=== PATIENT | male | born 1960 | race Caucasian/White ===

== ENCOUNTER 2019-06-18 22:02 | Emergency (ER) | payer SELFPAY ==
[~2019-06-18] VITALS: Ht 162.6 cm; Wt 56.7 kg
--- NOTE | 2019-06-18 22:50 | Diagnostic Imaging Report ---
EXAMINATION: Head CT HISTORY: Status post fall the day before, head trauma, right forehead laceration, persistent headache COMPARISON: None. TECHNIQUE: Multidetector axial images were obtained without contrast from the foramen magnum to the vertex . The images were reconstructed using brain and bone algorithms. Thin section brain images were reformatted into coronal and sagittal planes. Image quality: Motion/streaking artifact limits the evaluation of the skull base and posterior cranial fossa. Dose modulation, iterative reconstruction, and/or weight based adjustment of the mA/kV was utilized to reduce the radiation dose to as low as reasonably achievable. FINDINGS: Parenchyma: 1. No abnormal densities. 2. No mass or hemorrhage. No CT evidence of acute territorial vascular insult. Extra-axial spaces:No abnormal density. No extra-axial fluid collections Brain volume: Normal for age. 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 Arteries: No density suggestive of thrombus. Dural sinuses: No abnormal density. Extra-axial spaces: No abnormal density. Foramen magnum: No mass, Chiari malformation, or basilar invagination. Sella: No obvious mass. Paranasal/mastoid sinuses: Imaged portions unremarkable. Skull/Scalp: No lytic or blastic lesions. No fractures. Incidental findings: Right ocular scleral band, the right globe is elongated in the AP dimension and the right left is not visualized, likely from prior cataract surgery. IMPRESSION: 1. No acute posttraumatic intracranial abnormalities, particularly no hemorrhage. 2. 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 Signed by: Dr. Patricia Payton M.D. on 06/18/2019 10:46 PM
--- NOTE | 2019-06-18 23:03 | Diagnostic Imaging Report ---
RIGHT ELBOW - 3 Images HISTORY: Status post fall, pain COMPARISON: None available. FINDINGS: Sensitivity limited by portable technique. Bones: No acute displaced fracture. No aggressive osseous lesion. Small olecranon enthesophyte. Joints: Mild ulnotrochlear degenerative changes. Soft tissues: The soft tissues appear unremarkable. IMPRESSION: 1. No acute radiographic abnormality. 2. Mild ulnotrochlear osteoarthrosis. 3. Mild chronic distal triceps enthesopathy. Signed by: Dr. Nicholas Arreola D.O., M.M.M. on 06/18/2019 11:00 PM
[2019-06-19 00:25] VITALS: BP 109/72
[2019-06-19] MEDS ORDERED: ACETAMINOPHEN 325 MG TAB PO ONE (00:30)
[2019-06-19] MEDS ORDERED: ACETAMINOPHEN 325 MG TAB ONE ×2 (00:33→00:35)
== END 2019-06-19 00:35 | disposition home or self-care (01) ==
LOC: ER 22:02
DX: S00.83XA Contusion of other part of head, initial encounter (principal); S50.01XA Contusion of right elbow, initial encounter; W18.30XA Fall on same level, unspecified, initial encounter; Y92.488 Other paved roadways as the place of occurrence of the external cause; I10 Essential (primary) hypertension; E03.9 Hypothyroidism, unspecified; B19.20 Unspecified viral hepatitis C without hepatic coma; F41.9 Anxiety disorder, unspecified
CPT/HCPCS: 70450; 99283

== ENCOUNTER → 2020-07-06 | Outpatient (CLI) | payer OTHER ==
[~2020-07-06] MED LIST: AMLODIPINE BESYL5 MG PO; BUPROPION HCL75 MG PO; LEVOTHYROXINE100 MC1 PO; LIBRIUM PO; LISINOPRIL10 MG PO; PROAIR HFA INH8.5 GM INH
--- NOTE | 2020-07-06 10:40 | Diagnostic Imaging Report ---
EXAM: US LIVER DATE: 07/06/2020 10:09 AM INDICATION: Hepatitis C COMPARISON: None FINDINGS: The visualized pancreas appears unremarkable. The liver is normal in size measuring 14.6 cm in length. Hepatic echogenicity is within normal limits. No focal hepatic abnormality is identified. The main portal vein is patent with antegrade flow and diameter of 1.1 cm, within normal limits. The gallbladder appears contracted but otherwise unremarkable. There is no evidence for cholelithiasis, wall thickening, or pericholecystic fluid. There is no intra or extrahepatic biliary ductal dilatation. The common bile duct measures 3 mm. Sonographic Mcdonald's sign is negative. The right kidney is normal in size measuring 10.5 cm in length with normal cortical thickness/echogenicity. There is no evidence for solid renal mass, hydronephrosis, or shadowing calculi within the right kidney. The visualized portions the IVC and aorta are within normal limits. There is no ascites visualized within the right upper quadrant. IMPRESSION: Unremarkable right upper quadrant ultrasound examination. Specifically, no sonographically evident focal hepatic abnormality is identified. Signed by: Dr. Maurisio Bob MD on 07/06/2020 10:37 AM
== END ==
LOC: US 09:49
PROVIDERS: ATTEND Internal Medicine Gastroenterology
DX: B18.2 Chronic viral hepatitis C (principal)
CPT/HCPCS: 76705

== ENCOUNTER → 2020-07-10 | Day surgery (SDC) | payer OTHER ==
[2020-07-05 09:45] LABS: BASOPHILS # (AUTO) 0.1 (0.0-0.1); BASOPHILS % 0.8 % (0.0-1.0); EOSINOPHILS # (AUTO) 0.1 (0.0-0.4); EOSINOPHILS % 1.5 % (0.0-6.0); HEMOGLOBIN 14.6 g/dL (14.0-18.0); LYMPHOCYTES # (AUTO) 1.8 (1.0-3.2); LYMPHOCYTES % 24.8 % (18.0-39.1); MEAN CORPUSCULAR HEMOGLOBIN 34.8 pg (28-32); MEAN CORPUSCULAR VOLUME 102.4 fL (81-99); MONOCYTES # (AUTO) 0.7 (0.2-0.8); MONOCYTES % 9.2 % (4.4-11.3); NEUTROPHILS # (AUTO) 4.6 (2.1-6.9); NEUTROPHILS % 63.1 % (38.7-80.0); PLATELET COUNT 230 x10e3/uL (140-360); RED CELL DISTRIBUTION WIDTH 12.7 % (11.7-14.4)
[2020-07-05 10:06] LABS: ALANINE AMINOTRANSFERASE 50 IU/L (0-55); ALBUMIN 3.4 g/dL (3.5-5.0); ALBUMIN/GLOBULIN RATIO 0.9 (0.8-2.0); ALKALINE PHOSPHATASE 100 IU/L (40-150); ANION GAP 11.1 mmol/L (8-16); BLOOD UREA NITROGEN 5 mg/dL (7-26); BUN/CREATININE RATIO 6 (6-25); CALCIUM 9.3 mg/dL (8.4-10.2); CARBON DIOXIDE 28 mmol/L (22-29); CHLORIDE 103 mmol/L (98-107); CREATININE, SERUM 0.82 mg/dL (0.72-1.25); EST GLOMERULAR FILTRATION RATE > 60 ML/MIN (60-); GLUCOSE 79 mg/dL (74-118); POTASSIUM 3.1 mmol/L (3.5-5.1); SODIUM 139 mmol/L (136-145)
[2020-07-05 10:49] LABS: INR 0.88; PROTHROMBIN TIME 12.4 seconds (11.9-14.5)
[2020-07-05 10:50] LABS: PARTIAL THROMBOPLASTIN TIME 27.2 seconds (23.8-35.5)
[~2020-07-10] MED LIST changes: +FENTANYL CITRATE/PF 100MCG/2 ML INJ ONE; +GLUCAGON FOR INJ 1 MG VIAL ONE; +HYOSCYAMINE 0.125 MG TAB ONE; +LIDOCAINE HCL 2% LOCAL INJ 5 ML SDV VIAL INJ ONE; +MIDAZOLAM HCL 2 MG/2 ML VIAL ONE; +PROPOFOL IV EMULSION 10 MG/ML 20 ML VIAL ONE
[2020-07-10 13:55] VITALS: BP 114/80
--- NOTE | 2020-07-10 14:09 | Operative Report ---
DATE OF PROCEDURE: 07/10/2020 SURGEON: Jim Bah MD PROCEDURE: Colonoscopy with polypectomy. INDICATIONS FOR COLONOSCOPY: Colorectal cancer screening. MEDICATIONS: The patient was done under MAC, please see anesthesiologist's note. PROCEDURE IN DETAIL: With the patient in the left lateral decubitus position, a flexible fiberoptic Olympus colonoscope was inserted into the rectum with ease and advanced all the way to the cecum. It was then withdrawn slowly. Mucosa overlying the cecum, ascending colon, transverse colon, and descending colon appeared to be within normal limits. Two polyps with the largest approximately 1.2 cm in size, sessile were removed per snare electrocautery from the sigmoid colon. Two additional polyps, one approximately 6 mm and the other approximately 8 mm in the rectum were removed per hot snare polypectomy. The scope was then retroflexed into the distal rectum and small internal hemorrhoids were noted, none of which was actively bleeding. The scope was then straightened out, it was subsequently withdrawn, and the patient tolerated the procedure well. IMPRESSION: 1. Sigmoid colon polyps x2 with the largest approximately 1.2 cm in size, removed per snare electrocautery. 2. Rectal polyps x2, hot snared. 3. Internal hemorrhoids, none actively bleeding. PLAN: Follow up histology. Initiate high-fiber, low-fat diet. Initiate high-fiber supplement. The patient might benefit from a followup colonoscopy in 2 to 3 years. Jim Bah MD [facility] [place][id number] cc: Macario Matt MD
== END | disposition home or self-care (01) ==
LOC: OR 08:48
PROVIDERS: ATTEND Internal Medicine Gastroenterology
DX: Z12.11 Encounter for screening for malignant neoplasm of colon (principal); D12.8 Benign neoplasm of rectum; K64.8 Other hemorrhoids; E03.9 Hypothyroidism, unspecified; B19.20 Unspecified viral hepatitis C without hepatic coma; I10 Essential (primary) hypertension; J44.9 Chronic obstructive pulmonary disease, unspecified; F32.9 Major depressive disorder, single episode, unspecified; F41.9 Anxiety disorder, unspecified; F17.290 Nicotine dependence, other tobacco product, uncomplicated; F17.210 Nicotine dependence, cigarettes, uncomplicated; F10.10 Alcohol abuse, uncomplicated; Z01.810 Encounter for preprocedural cardiovascular examination; Z01.812 Encounter for preprocedural laboratory examination; Z11.59 Encounter for screening for other viral diseases; Z99.81 Dependence on supplemental oxygen
CPT/HCPCS: 36415; 45385; 80053; 85025; 85610; 85730; 93005; J1610; J2001; J2250; J2704; J3010; U0002; 45378; 45380

== ENCOUNTER 2021-09-20 09:04 | Emergency (ER) | payer OTHER, MEDICARE ==
[~2021-09-20] VITALS: Ht 162.6 cm; Wt 56.7 kg
[~2021-09-20 09:04] MED LIST changes: -FENTANYL CITRATE/PF 100MCG/2 ML INJ ONE; -GLUCAGON FOR INJ 1 MG VIAL ONE; -HYOSCYAMINE 0.125 MG TAB ONE; -LIDOCAINE HCL 2% LOCAL INJ 5 ML SDV VIAL INJ ONE; -MIDAZOLAM HCL 2 MG/2 ML VIAL ONE; -PROPOFOL IV EMULSION 10 MG/ML 20 ML VIAL ONE
[2021-09-20] MEDS ORDERED: IBUPROFEN 600 MG TAB PO STA (10:01)
[2021-09-20] MEDS ORDERED: ULTRACET TABLE1 EACH PO (11:00)
[2021-09-20] MEDS ORDERED: IBUPROFEN600 MG PO (11:00)
[2021-09-20] MEDS ORDERED: Morphine 4mg Syringe 4 MG/ML INJ IM ONE (12:15)
[2021-09-20] MEDS ORDERED: Morphine 4mg Syringe 4 MG/ML INJ ONE (12:23)
[2021-09-20 12:24] VITALS: BP 152/92
== END 2021-09-20 12:30 | disposition home or self-care (01) ==
LOC: ER 09:23
DX: M25.562 Pain in left knee (principal); S82.002A Unspecified fracture of left patella, initial encounter for closed fracture; W01.0XXA Fall on same level from slipping, tripping and stumbling without subsequent striking against object, initial encounter; Y92.008 Other place in unspecified non-institutional (private) residence as the place of occurrence of the external cause; I10 Essential (primary) hypertension; E03.9 Hypothyroidism, unspecified; B19.20 Unspecified viral hepatitis C without hepatic coma; H40.9 Unspecified glaucoma; F17.210 Nicotine dependence, cigarettes, uncomplicated
CPT/HCPCS: 29530; 73562; 99283; J2270

== ENCOUNTER 2022-03-10 13:36 | Observation (INO) | payer MEDICARE, OTHER ==
[~2022-03-10] VITALS: Ht 162.6 cm; Wt 56.7 kg
[~2022-03-10 13:36] MED LIST changes: +IBUPROFEN600 MG PO; +ULTRACET TABLE1 EACH PO
[2022-03-10 14:00] LABS: BASOPHILS # (AUTO) 0.1 (0.0-0.1); EOSINOPHILS # (AUTO) 0.1 (0.0-0.4); EOSINOPHILS % 1.3 % (0.0-6.0); HEMATOCRIT 49.4 % (38.2-49.6); HEMOGLOBIN 17.5 g/dL (14.0-18.0); LYMPHOCYTES # (AUTO) 1.9 (1.0-3.2); MEAN CORPUSCULAR HEMOGLOBIN 35.7 pg (28-32); MEAN CORPUSCULAR HGB CONC 35.4 g/dL (31-35); MEAN CORPUSCULAR VOLUME 100.8 fL (81-99); MONOCYTES # (AUTO) 0.5 (0.2-0.8); MONOCYTES % 7.9 % (4.4-11.3); NEUTROPHILS # (AUTO) 3.5 (2.1-6.9); NEUTROPHILS % 58.1 % (38.7-80.0); PLATELET COUNT 174 x10e3/uL (140-360); RED CELL DISTRIBUTION WIDTH 12.8 % (11.7-14.4)
[2022-03-10 14:21] LABS: INR 0.95; PROTHROMBIN TIME 13.6 seconds (11.9-14.5)
[2022-03-10 14:22] LABS: PARTIAL THROMBOPLASTIN TIME 26.9 seconds (23.8-35.5)
[2022-03-10 14:32] LABS: ALANINE AMINOTRANSFERASE 60 IU/L (0-55); ALBUMIN 3.7 g/dL (3.5-5.0); ALBUMIN/GLOBULIN RATIO 0.9 (0.8-2.0); ALKALINE PHOSPHATASE 97 IU/L (40-150); BLOOD UREA NITROGEN 12 mg/dL (7-26); BUN/CREATININE RATIO 12 (6-25); CALCIUM 9.6 mg/dL (8.4-10.2); CARBON DIOXIDE 24 mmol/L (22-29); CHLORIDE 98 mmol/L (98-107); CREATINE KINASE 28 IU/L (30-200); CREATININE, SERUM 0.98 mg/dL (0.72-1.25); EST GLOMERULAR FILTRATION RATE 78 ML/MIN (60-); GLUCOSE 103 mg/dL (74-118); SODIUM 132 mmol/L (136-145)
[2022-03-10 14:46] LABS: AMPHETAMINES SCREEN,URINE NEGATIVE (NEGATIVE); BENZODIAZEPINES SCREEN,URINE POSITIVE (NEGATIVE); PHENCYCLIDINE SCREEN,URINE NEGATIVE (NEGATIVE)
[2022-03-10 14:47] LABS: CLARITY,URINE HAZY (CLEAR); COLOR,URINE YELLOW (YELLOW); KETONES,URINE 1+ (NEGATIVE); LEUKOCYTE ESTERASE ,URINE NEGATIVE (NEGATIVE); NITRITE,URINE NEGATIVE (NEGATIVE); PROTEIN,URINE DIPSTICK NEGATIVE (NEGATIVE); URINE UROBILINOGEN 1 mg/dL (0.2 - 1)
[2022-03-10 14:49] LABS: BACTERIA,URINE FEW /HPF; EPITHELIAL CELLS,URINE FEW /LPF; RBC,URINE 0-5 /HPF (0-5); WBC,URINE (MAN) 0-5 /HPF (0-5)
[2022-03-10 14:51] LABS: CREATINE KINASE MB < 0.10 ng/mL (0-5.0)
[2022-03-10] MEDS ORDERED: HYDROCODONE/APAP 5MG-325MG TAB PO ONE (15:30)
[2022-03-10] MEDS ORDERED: SODIUM CHLORIDE 0.9% 1000ML 1,000 ML IV SCH (16:00)
[2022-03-10 16:50] VITALS: BP 150/99
[2022-03-10 16:55] VITALS: BP 150/99
[2022-03-10] MEDS ORDERED: HYDROCODON-ACE1 EAC9 PO (17:06)
[2022-03-10] MEDS ORDERED: DIAZEPAM5 MG PO (17:06)
[2022-03-10] MEDS ORDERED: METHOCARBAMOL500 MG PO (17:06)
[2022-03-10] MEDS ORDERED: ENOXAPARIN SOD INJ 40 MG/0.4 ML SYR SC STA (17:49)
[2022-03-10] MEDS ORDERED: HYDRALAZINE HCL 20 MG/ML VIAL IV PRN (18:00)
[2022-03-10] MEDS ORDERED: METHOCARBAMOL 500 MG TAB PO PRN (18:00)
[2022-03-10] MEDS ORDERED: ALBUTEROL/IPRATROPIUM 3 ML NEB NEB PRN (18:00)
[2022-03-10] MEDS: HYDROCODONE/APAP 10MG-325MG TAB PO PRN ×2 (18:52→23:15)
[2022-03-10] MEDS: ALBUTEROL/IPRATROPIUM 3 ML NEB NEB SCH (19:25)
[2022-03-10 19:42] LABS: CREATINE KINASE 28 IU/L (30-200)
[2022-03-10 19:51] LABS: CREATINE KINASE MB < 0.10 ng/mL (0-5.0)
[2022-03-10 20:00] VITALS: BP 127/79
[2022-03-10 20:30] VITALS: BP 127/79
[2022-03-10] MEDS: DIAZEPAM 5 MG TAB PO PRN (21:05)
[2022-03-10] MEDS: NICOTINE 21 MG/EA PATCH TOP SCH (21:05)
[2022-03-11] VITALS (7 sets, daily range): BP systolic 110–146; BP diastolic 68–96
[2022-03-11] MEDS: ALBUTEROL/IPRATROPIUM 3 ML NEB NEB SCH ×4 (01:35→19:02)
[2022-03-11] MEDS: METHYLPREDNISOLONE SOD SUCC 40 MG/ML VIAL 1ML IV SCH ×3 (02:33→21:00)
[2022-03-11] MEDS: HYDROCODONE/APAP 10MG-325MG TAB PO PRN ×5 (04:40→21:45)
[2022-03-11] MEDS: LEVOTHYROXINE SODIUM 100 MCG TAB PO SCH (05:21)
[2022-03-11 06:16] LABS: BASOPHILS # (AUTO) 0.1 (0.0-0.1); BASOPHILS % 0.9 % (0.0-1.0); EOSINOPHILS % 0.5 % (0.0-6.0); HEMATOCRIT 46.9 % (38.2-49.6); HEMOGLOBIN 16.5 g/dL (14.0-18.0); LYMPHOCYTES # (AUTO) 0.8 (1.0-3.2); LYMPHOCYTES % 13.3 % (18.0-39.1); MEAN CORPUSCULAR HEMOGLOBIN 35.3 pg (28-32); MEAN CORPUSCULAR HGB CONC 35.2 g/dL (31-35); MEAN CORPUSCULAR VOLUME 100.4 fL (81-99); MONOCYTES # (AUTO) 0.2 (0.2-0.8); MONOCYTES % 2.8 % (4.4-11.3); NEUTROPHILS # (AUTO) 4.6 (2.1-6.9); PLATELET COUNT 146 x10e3/uL (140-360); RED BLOOD COUNT 4.67 x10e6/uL (4.3-5.7); RED CELL DISTRIBUTION WIDTH 12.7 % (11.7-14.4)
[2022-03-11 06:52] LABS: ANION GAP 15.2 mmol/L (8-16); CALCIUM 8.7 mg/dL (8.4-10.2); CREATININE, SERUM 0.86 mg/dL (0.72-1.25); POTASSIUM 4.2 mmol/L (3.5-5.1)
[2022-03-11 07:10] LABS: CHOL/HDL RATIO 3.9 (3.9-4.7); MAGNESIUM 1.9 MG/DL (1.3-2.1); PHOSPHORUS 3.6 MG/DL (2.3-4.7)
[2022-03-11 07:32] LABS: THYROID STIMULATING HORMONE 1.334 uIU/mL (0.350-4.940)
[2022-03-11] MEDS: LISINOPRIL 10 MG TAB PO SCH (09:13)
[2022-03-11] MEDS: BUPROPION HCL 75 MG TAB PO SCH (09:13)
[2022-03-11] MEDS: ASPIRIN 81 MG ENTERIC COATED PO SCH (09:13)
[2022-03-11] MEDS: NICOTINE 21 MG/EA PATCH TOP SCH (09:13)
[2022-03-11] MEDS: CEFTRIAXONE 1 GM in SODIUM CHLORIDE 0.9% 50ML 50 ML IV SCH (09:13)
[2022-03-11] MEDS: AMLODIPINE BESYLATE 5 MG TAB PO SCH (09:13)
[2022-03-11] MEDS: DIAZEPAM 5 MG TAB PO PRN (15:47)
[2022-03-11] MEDS ORDERED: ENOXAPARIN SOD INJ 40 MG/0.4 ML SYR SC SCH (17:00)
[2022-03-12] VITALS: BP 121/69
[2022-03-12] MEDS: ALBUTEROL/IPRATROPIUM 3 ML NEB NEB SCH ×3 (01:35→07:00)
[2022-03-12] MEDS: HYDROCODONE/APAP 10MG-325MG TAB PO PRN ×2 (01:47→07:54)
[2022-03-12] MEDS: DIAZEPAM 5 MG TAB PO PRN (03:40)
[2022-03-12 04:00] VITALS: BP 128/83
[2022-03-12] MEDS: LEVOTHYROXINE SODIUM 100 MCG TAB PO SCH (05:55)
[2022-03-12 07:46] VITALS: BP 122/91
[2022-03-12] MEDS: CEFTRIAXONE 1 GM in SODIUM CHLORIDE 0.9% 50ML 50 ML IV SCH (08:24)
[2022-03-12] MEDS: AMLODIPINE BESYLATE 5 MG TAB PO SCH (08:25)
[2022-03-12] MEDS: ASPIRIN 81 MG ENTERIC COATED PO SCH (08:25)
[2022-03-12] MEDS: METHYLPREDNISOLONE SOD SUCC 40 MG/ML VIAL 1ML IV SCH (08:25)
[2022-03-12] MEDS: NICOTINE 21 MG/EA PATCH TOP SCH (08:25)
[2022-03-12] MEDS: BUPROPION HCL 75 MG TAB PO SCH (08:25)
[2022-03-12] MEDS: LISINOPRIL 10 MG TAB PO SCH (08:25)
[2022-03-12] MEDS ORDERED: AZITHROMYCIN 250 MG TAB PO SCH (09:00)
[2022-03-12 09:52] VITALS: BP 122/91
[2022-03-12] MEDS ORDERED: NEURONTIN100 MG PO (10:10)
[2022-03-12] MEDS ORDERED: CELEBREX100 MG PO (10:10)
[2022-03-12] MEDS ORDERED: GABAPENTIN 100 MG CAP PO ONE (10:45)
== END 2022-03-12 11:10 | disposition home or self-care (01) ==
LOC: ER 13:38 → INTOOBSV 15:57 → ERHOLD 15:57 → MED/SURG2 16:30
PROVIDERS: ADMIT Internal Medicine; ATTEND Internal Medicine
DX: M48.02 Spinal stenosis, cervical region (principal); J44.1 Chronic obstructive pulmonary disease with (acute) exacerbation; E87.1 Hypo-osmolality and hyponatremia; F17.200 Nicotine dependence, unspecified, uncomplicated; I10 Essential (primary) hypertension; E78.5 Hyperlipidemia, unspecified; B19.20 Unspecified viral hepatitis C without hepatic coma; M19.90 Unspecified osteoarthritis, unspecified site; R07.89 Other chest pain; E03.9 Hypothyroidism, unspecified; I25.10 Atherosclerotic heart disease of native coronary artery without angina pectoris; R09.02 Hypoxemia
CPT/HCPCS: 36415 ×2; 70450; 70496; 70498; 70551; 71045; 72141; 80048; 80053; 80061; 80307; 81001; 82550; 82553; 83036; 83735; 83880; 84100; 84443; 84484; 85025 ×2; 85610; 85730; 93005; 93306; 93880; 94640 ×3; 94799 ×3; 99284; G0378 ×3; J0456; J0696 ×2; J1650 ×2; J2920 ×2; J7030; J7050; U0002

== ENCOUNTER 2022-06-26 00:10 | Observation (INO) | payer OTHER ==
[~2022-06-26] VITALS: Ht 162.6 cm; Wt 56.7 kg
[~2022-06-26 00:10] MED LIST changes: +CELEBREX100 MG PO; +DIAZEPAM5 MG PO; +HYDROCODON-ACE1 EAC9 PO; +METHOCARBAMOL500 MG PO; +NEURONTIN100 MG PO
[2022-06-26 00:25] LABS: BASOPHILS # (AUTO) 0.1 (0.0-0.1); BASOPHILS % 0.9 % (0.0-1.0); EOSINOPHILS # (AUTO) 0.1 (0.0-0.4); EOSINOPHILS % 2.2 % (0.0-6.0); HEMATOCRIT 38.2 % (38.2-49.6); HEMOGLOBIN 13.4 g/dL (14.0-18.0); LYMPHOCYTES # (AUTO) 2.1 (1.0-3.2); MEAN CORPUSCULAR HEMOGLOBIN 35.4 pg (28-32); MEAN CORPUSCULAR HGB CONC 35.1 g/dL (31-35); MEAN CORPUSCULAR VOLUME 100.8 fL (81-99); MONOCYTES # (AUTO) 0.6 (0.2-0.8); MONOCYTES % 9.9 % (4.4-11.3); NEUTROPHILS # (AUTO) 3.5 (2.1-6.9); NEUTROPHILS % 53.8 % (38.7-80.0); PLATELET COUNT 152 x10e3/uL (140-360); RED BLOOD COUNT 3.79 x10e6/uL (4.3-5.7); RED CELL DISTRIBUTION WIDTH 12.2 % (11.7-14.4)
[2022-06-26 00:36] LABS: AMPHETAMINES SCREEN,URINE NEGATIVE (NEGATIVE); BENZODIAZEPINES SCREEN,URINE POSITIVE (NEGATIVE); PHENCYCLIDINE SCREEN,URINE NEGATIVE (NEGATIVE)
[2022-06-26 00:45] LABS: ALANINE AMINOTRANSFERASE 52 IU/L (0-55); ALBUMIN 3.3 g/dL (3.5-5.0); ALBUMIN/GLOBULIN RATIO 1.1 (0.8-2.0); ALKALINE PHOSPHATASE 83 IU/L (40-150); BLOOD UREA NITROGEN 6 mg/dL (7-26); BUN/CREATININE RATIO 7 (6-25); CALCIUM 8.3 mg/dL (8.4-10.2); CARBON DIOXIDE 24 mmol/L (22-29); CHLORIDE 90 mmol/L (98-107); CREATINE KINASE 113 IU/L (30-200); CREATININE, SERUM 0.84 mg/dL (0.72-1.25); GLUCOSE 79 mg/dL (74-118); SODIUM 124 mmol/L (136-145)
[2022-06-26] MEDS ORDERED: ONDANSETRON HCL INJ 2MG/ML 2ML 2 MG/ML VIAL IV PRN (01:15)
[2022-06-26 01:50] VITALS: BP 122/80
[2022-06-26] MEDS: NICOTINE 7 MG PATCH TOP SCH ×2 (01:52→08:24)
[2022-06-26] MEDS: Morphine 4mg INJECTION 4 MG/ML INJ IV PRN ×4 (01:53→14:00)
[2022-06-26 02:00] VITALS: BP 122/80
[2022-06-26 04:00] VITALS: BP 129/86
[2022-06-26 08:00] VITALS: BP 119/73
[2022-06-26 09:05] VITALS: BP 119/73
[2022-06-26 09:36] LABS: CREATINE KINASE 88 IU/L (30-200)
[2022-06-26] MEDS ORDERED: ALBUTEROL SULFATE HFA 8GM INHALATION AEROSOL INH PRN (11:45)
[2022-06-26 12:39] VITALS: BP 143/91
[2022-06-26] MEDS ORDERED: GABAPENTIN 100 MG CAP PO SCH (15:00)
[2022-06-26] MEDS ORDERED: DIAZEPAM 5 MG TAB PO SCH (17:00)
[2022-06-27] MEDS ORDERED: LEVOTHYROXINE SODIUM 100 MCG TAB PO SCH (06:00)
[2022-06-27] MEDS ORDERED: LISINOPRIL 10 MG TAB PO SCH (09:00)
[2022-06-27] MEDS ORDERED: METHOCARBAMOL 500 MG TAB PO SCH (09:00)
[2022-06-27] MEDS ORDERED: AMLODIPINE BESYLATE 5 MG TAB PO SCH (09:00)
== END 2022-06-26 16:45 | disposition home or self-care (01) ==
LOC: ER 00:12 → ERHOLD 01:10 → MED/SURG 01:38
PROVIDERS: ADMIT Internal Medicine; ATTEND Internal Medicine
DX: R07.89 Other chest pain (principal); E87.1 Hypo-osmolality and hyponatremia; K85.90 Acute pancreatitis without necrosis or infection, unspecified; Z86.73 Personal history of transient ischemic attack (TIA), and cerebral infarction without residual deficits; E03.9 Hypothyroidism, unspecified; Z86.19 Personal history of other infectious and parasitic diseases; H54.61 Unqualified visual loss, right eye, normal vision left eye; F10.20 Alcohol dependence, uncomplicated; F12.10 Cannabis abuse, uncomplicated; F17.210 Nicotine dependence, cigarettes, uncomplicated; Z91.19 Patient's noncompliance with other medical treatment and regimen; I10 Essential (primary) hypertension; F32.9 Major depressive disorder, single episode, unspecified; J44.9 Chronic obstructive pulmonary disease, unspecified; Z20.822 Contact with and (suspected) exposure to COVID-19
CPT/HCPCS: 0223U; 36415; 71045; 80053; 80307; 80320; 82550; 82553; 83690; 83880; 84484; 85025; 93005; 93306; 99284; G0378; J2270; J2405

== ENCOUNTER 2022-07-02 23:17 | Emergency (ER) | payer OTHER ==
[~2022-07-02] VITALS: Ht 162.6 cm; Wt 56.7 kg
[2022-07-02] MEDS ORDERED: KETOROLAC TROMETHAMINE 30 MG/ML VIAL IV STA (23:41)
[2022-07-02 23:45] LABS: BASOPHILS # (AUTO) 0.1 (0.0-0.1); BASOPHILS % 1.2 % (0.0-1.0); EOSINOPHILS # (AUTO) 0.1 (0.0-0.4); EOSINOPHILS % 1.4 % (0.0-6.0); HEMATOCRIT 39.6 % (38.2-49.6); HEMOGLOBIN 13.7 g/dL (14.0-18.0); LYMPHOCYTES # (AUTO) 2.2 (1.0-3.2); MEAN CORPUSCULAR HEMOGLOBIN 35.7 pg (28-32); MEAN CORPUSCULAR HGB CONC 34.6 g/dL (31-35); MEAN CORPUSCULAR VOLUME 103.1 fL (81-99); MONOCYTES # (AUTO) 0.7 (0.2-0.8); MONOCYTES % 13.1 % (4.4-11.3); NEUTROPHILS # (AUTO) 2.5 (2.1-6.9); NEUTROPHILS % 44.7 % (38.7-80.0); PLATELET COUNT 178 x10e3/uL (140-360); RED BLOOD COUNT 3.84 x10e6/uL (4.3-5.7); RED CELL DISTRIBUTION WIDTH 12.7 % (11.7-14.4)
[2022-07-03] LABS: ANION GAP 14.8 mmol/L (8-16); BLOOD UREA NITROGEN < 5 mg/dL (7-26); CALCIUM 8.1 mg/dL (8.4-10.2); CARBON DIOXIDE 20 mmol/L (22-29); CHLORIDE 94 mmol/L (98-107); CREATININE, SERUM 0.83 mg/dL (0.72-1.25); GLUCOSE 84 mg/dL (74-118); POTASSIUM 4.8 mmol/L (3.5-5.1); SODIUM 124 mmol/L (136-145)
[2022-07-03 00:03] LABS: BUN/CREATININE RATIO 6 (6-25)
[2022-07-03] MEDS ORDERED: SODIUM CHLORIDE 0.9% 1000ML 1,000 ML IV SCH (00:15)
== END 2022-07-03 00:40 | disposition home or self-care (01) ==
LOC: ER 23:20
DX: R07.89 Other chest pain (principal); E87.1 Hypo-osmolality and hyponatremia; F10.10 Alcohol abuse, uncomplicated; M79.7 Fibromyalgia; I10 Essential (primary) hypertension; E03.9 Hypothyroidism, unspecified; K76.9 Liver disease, unspecified; F41.9 Anxiety disorder, unspecified; Z86.73 Personal history of transient ischemic attack (TIA), and cerebral infarction without residual deficits; F17.210 Nicotine dependence, cigarettes, uncomplicated
CPT/HCPCS: 36415; 71045; 80048; 84484; 85025; 99284; J1885; J7030